=== PATIENT | male | born 1970 | race Asian ===

== ENCOUNTER 2017-01-11 06:26 | Day surgery (SDC) | payer OTHER ==
[2017-01-06 08:52] VITALS: BMI 26.9
[2017-01-11] MEDS ORDERED: oxyCODONE HCL 5 MG TABLET PO PRN (08:04)
[2017-01-11] MEDS ORDERED: ONDANSETRON 4 MG/2 ML VIAL IVPUSH PRN (08:04)
[2017-01-11] MEDS ORDERED: LACTATED RINGERS SOLUTION 1,000 ML IV SCH (08:15)
[2017-01-11] MEDS ORDERED: LEVOFLOXACIN 500 MG PREMIX BAG IVPB ONE (08:42)
[2017-01-11] MEDS ORDERED: DESFLURANE GAS 240 ML BOTTLE IH ONE (09:01)
[2017-01-11 11:30] VITALS: TEMP 97.6
--- NOTE | 2017-01-11 11:30 | OP ---
Operative Note - Note: Operative Date: 01/11/17 Pre-Operative Diagnosis: bilateral urolithiasis Operation: cystoscopy/bilateral retrograde pyelogram/right ureteroscopic laser lithotripsy/right ureterscopic stone basketing/right ureteral stent placement Findings: right ureteral stone with proximal hydroureteronephrosis/left hydro with left renal stones without obstruction Post-Operative Diagnosis: Other (impacted right ureteral stone) Surgeon: Yuriy León Anesthesia: General Specimens Removed: ureteral stone Drains & Tubes with Location: 6 fr/24 cm right ureteral stent
[2017-01-11 12:49] VITALS: BP 101/67; PULSE 59
--- NOTE | 2017-01-12 10:57 | PATH ---
Surgical Pathology Report Patient Name: ALEXANDRIA SR [facility]. Rec. #: [id number] /Age/Gender: 1970 (Age: 46) / M Account: [id number] Location: [facility] SURGICAL Taken: 01/11/2017 Received: 01/11/2017 Reported: 01/12/2017 Physicians: Yuriy León Specimen(s) Received KIDNEY STONE Clinical History Hydronephrosis Final Diagnosis KIDNEY STONE, EXTRACTION: CALCULI SUBMITTED FOR CHEMICAL ANALYSIS (gross only). Electronically Signed Srikanth Teresa M.D. Gross Description Received fresh labeled "kidney stone," is a 0.1 cm in greatest dimension blas, irregular calculus which is sent for chemical analysis. DL/01/11/2017 saudi/01/11/2017
--- NOTE | 2017-01-12 11:16 | OP ---
DATE OF OPERATION: 01/11/2017 PREOPERATIVE DIAGNOSIS: Bilateral urolithiasis with left-sided colic. POSTOPERATIVE DIAGNOSES: 1. Bilateral hydronephrosis. 2. Right impacted ureteral stone with proximal hydronephrosis. 3. Left hydronephrosis with renal stones without evidence of obstruction. PROCEDURE: Cystoscopy, bilateral retrograde pyelogram, right ureteroscopic laser lithotripsy, right ureteroscopic stone basketing, right ureteral stent placement. ATTENDING: Yuriy Griffith MD ANESTHESIA: General. DESCRIPTION OF PROCEDURE: Patient was brought in the operating room, placed in supine position on the operating room table. General anesthesia and preoperative antibiotics were then administered. The patient was then placed in the dorsal lithotomy position, prepped and draped in the usual sterile manner. Cystoscopy was performed. No evidence of neoplasm or stones within the bladder was noted. A left retrograde pyelogram was performed which showed a hydronephrosis without evidence of ureteral obstruction. Adequate drainage of the left kidney was noted. A right retrograde pyelogram was performed, and the proximal right ureteral stone was noted. High-grade proximal hydroureteronephrosis was seen. At this point, a wire was passed through the cystoscope with mild difficulty into the left kidney. Ureteroscopy was then performed. The stone was visualized. Laser lithotripsy utilizing the holmium laser was performed. Stone fragments were basketed and removed and sent for analysis. Once the basketing was completed, the ureteroscope was removed, and a 6-Croatian 24-cm right ureteral stent was placed utilizing the Seldinger technique. No complications were noted. The patient tolerated the procedure very well. The disposition of the patient was to recovery room. Graeme [id number]
== END 2017-01-11 12:50 | disposition home or self-care (01) ==
LOC: JASU-SURG 06:26
PROVIDERS: ATTEND Urology
PROC: 0TF68ZZ Fragmentation in Right Ureter, Via Natural or Artificial Opening Endoscopic (ICD-10-PCS; 2017-01-11)
PROC: 0T768DZ Dilation of Right Ureter with Intraluminal Device, Via Natural or Artificial Opening Endoscopic (ICD-10-PCS; 2017-01-11)
PROC: BT14YZZ Fluoroscopy of Kidneys, Ureters and Bladder using Other Contrast (ICD-10-PCS; 2017-01-11)
PROC: 0TF48ZZ Fragmentation in Left Kidney Pelvis, Via Natural or Artificial Opening Endoscopic (ICD-10-PCS; principal; 2017-01-11 08:00)
DX: N20.2 Calculus of kidney with calculus of ureter (principal); N13.30 Unspecified hydronephrosis
CPT/HCPCS: 36415; 76000-TC; 82360; 88300-TC; 94760

== ENCOUNTER 2017-02-15 06:30 | Day surgery (SDC) | payer OTHER ==
[2017-02-10 13:18] VITALS: BMI 27.6
[2017-02-15] MEDS ORDERED: LEVOFLOXACIN 500 MG PREMIX BAG IVPB ONE ×2 (07:39→08:15)
[2017-02-15] MEDS ORDERED: ONDANSETRON 4 MG/2 ML VIAL IVPUSH PRN (08:53)
[2017-02-15] MEDS ORDERED: ACETAMINOPHEN 325 MG TABLET (FP) PO PRN (08:53)
[2017-02-15] MEDS ORDERED: LACTATED RINGERS SOLUTION 1,000 ML IV SCH (09:00)
[2017-02-15 09:57] VITALS: BP 115/71; PULSE 63
[2017-02-15 11:16] VITALS: TEMP 98
--- NOTE | 2017-02-15 15:22 | OP ---
Operative Note - Note: Operative Date: 02/15/17 Pre-Operative Diagnosis: right renal stone Operation: right eswl Findings: 7 mm right lower pole stone Post-Operative Diagnosis: Same as Pre-op Surgeon: Yuriy León Anesthesia: Fractional Operative Report Dictated: Yes
--- NOTE | 2017-02-15 21:51 | OP ---
DATE OF OPERATION: 02/15/2017 PREOPERATIVE DIAGNOSIS: Right renal stone. POSTOPERATIVE DIAGNOSIS: Right renal stone. PROCEDURE: Right extracorporeal shock wave lithotripsy. ATTENDING: Shine Noel MD ANESTHESIA: Fractional. DESCRIPTION OF OPERATION: The patient was brought in the operating room, placed in supine position on the operating room table. Ultrasonography and fluoroscopy were performed. A 7-mm right lower pole stone was identified. The patient was then given anesthesia and intravenous Levaquin. The patient underwent extracorporeal shock wave lithotripsy; 2500 impulses at 17 joules of power were administered to the stone with excellent fragmentation under real-time fluoroscopy and ultrasonography. The disposition of the patient was to recovery room. No complications were noted. SHINE NOEL M.D. [id number]
== END 2017-02-15 10:30 | disposition home or self-care (01) ==
LOC: JASU-SURG 06:30
PROVIDERS: ATTEND Urology
PROC: 0TF3XZZ Fragmentation in Right Kidney Pelvis, External Approach (ICD-10-PCS; principal; 2017-02-15 08:00)
DX: N20.0 Calculus of kidney (principal)
CPT/HCPCS: 94760

== ENCOUNTER 2017-08-15 10:25 | Observation (INO) | payer OTHER ==
[2017-08-15 10:40] VITALS: BMI 22.6
[2017-08-15] MEDS ORDERED: SODIUM CHLORIDE 1,000 ML IV STA ×2 (10:51→12:10)
[2017-08-15] MEDS ORDERED: FAMOTIDINE IV 20 MG/12 ML VIAL IVPB ONE (10:52)
[2017-08-15] MEDS ORDERED: ONDANSETRON 4 MG/2 ML VIAL IVPUSH ONE (10:53)
--- NOTE | 2017-08-15 11:08 | PDOC ---
History of Present Illness - General Chief Complaint: Lightheaded Stated Complaint: DIZZINESS, WEAKNESS,TREMORS Time Seen by Provider: 08/15/17 10:43 History Source: Patient Exam Limitations: No Limitations - History of Present Illness Initial Comments: 08/15/17 11:02 Patient is a 46M with history of NIDDM, HLD, enlarged prostate and kidney stones here today complaining of generalized weakness and shortness of breath over the past 3 days. Patient states that he has been feeling thirsty all the time, but denies dysuria and increased frequency. Patient also endorses shooting pains in his right foot for which he has started taking diclofenac. He also reports associated burning epigastric pain. Patient also reports chest pain described as a pressure with associated dizziness. Denies fevers, chills, vomiting. No prior cardiac workup beyond EKG. Brother had heart attack in 50s. No leg swelling, no history of blood clots. Past History - Past Medical History Allergies/Adverse Reactions: Allergies Allergy/AdvReac Type Severity Reaction Status Date / Time No Known Drug Allergies Allergy Verified 02/15/17 07:00 Home Medications: Ambulatory Orders Glimepiride [Amaryl] 2 mg PO BID 01/06/17 Simvastatin 10 mg PO HS 01/06/17 Tamsulosin HCl 0.4 mg PO HS 02/05/17 Anemia: No Asthma: No Cancer: No Cardiac Disorders: No CVA: No COPD: No CHF: No Dementia: No Diabetes: Yes GI Disorders: No Disorders: Yes (HX STONES) HTN: No Hypercholesterolemia: Yes Liver Disease: No Seizures: Yes (? PASSED OUT X2) Thyroid Disease: No - Surgical History Abdominal Surgery: No Appendectomy: No Cardiac Surgery: No Cholecystectomy: No Lung Surgery: No Neurologic Surgery: No Orthopedic Surgery: No - Suicide/Smoking/Psychosocial Hx Smoking History: Never smoked Have you smoked in the past 12 months: No Information on smoking cessation initiated: No Hx Alcohol Use: No Drug/Substance Use Hx: No Substance Use Type: None Hx Substance Use Treatment: No Review of Systems - Review of Systems Comments:: 08/15/17 11:05 GENERAL/CONSTITUTIONAL: No fever or chills. Positive for weakness. HEAD, EYES, EARS, NOSE AND THROAT: No change in vision. No sore throat. CARDIOVASCULAR: Positive for chest pain. Positive for shortness of breath RESPIRATORY: No cough, wheezing, or hemoptysis. GASTROINTESTINAL: Positive for nausea. Negative for vomiting, diarrhea or constipation. GENITOURINARY: No dysuria, frequency, or change in urination. MUSCULOSKELETAL: Positive for pain in right leg. No neck or back pain. SKIN: No rash NEUROLOGIC: No headache, vertigo, loss of consciousness, or change in strength/ sensation. ENDOCRINE: Positive for increased thirst. No abnormal weight change HEMATOLOGIC/LYMPHATIC: No anemia, easy bleeding, or history of blood clots. ALLERGIC/IMMUNOLOGIC: No hives or skin allergy. *Physical Exam - Vital Signs Last Vital Signs Temp Pulse Resp BP Pulse Ox 97.9 F 77 20 149/97 97 08/15/17 10:37 08/15/17 10:37 08/15/17 10:37 08/15/17 10:37 08/15/17 10:37 - Physical Exam Comments: 08/15/17 11:05 GENERAL: Awake, alert, and fully oriented, in no acute distress HEAD: No signs of trauma, normocephalic, atraumatic EYES: PERRLA, EOMI, sclera anicteric, conjunctiva clear ENT: Auricles normal inspection, hearing grossly normal, nares patent, oropharynx clear without exudates. Dry mucosa NECK: Normal ROM, supple, no lymphadenopathy, JVD, or masses LUNGS: No distress, speaks full sentences, clear to auscultation bilaterally, no tachypnea HEART: Regular rate and rhythm, normal S1 and S2, no murmurs, rubs or gallops, peripheral pulses normal and equal bilaterally. ABDOMEN: Soft, nontender, normoactive bowel sounds. No guarding, no rebound. No masses EXTREMITIES: Normal inspection, Normal range of motion, no edema. No clubbing or cyanosis. NEUROLOGICAL: Cranial nerves II through XII grossly intact. Normal speech, no focal sensorimotor deficits SKIN: Warm, Dry, normal turgor, no rashes or lesions noted. Heart Score/ECG Review - History History: Moderately suspicious - Electrocardiogram EKG: Normal - Age Age: 45-65 - Risk Factors Risk Factors Heart Score: Yes Hx Hypercholesterolemia, Yes Hx Diabetes, Yes Positive family hx of cardiac disease Based on the list above the patient has:: >/=3 risk factors or Hx atherosclerotic disease - Troponin Troponin: </= normal limit - Score Heart Score - Total: 4 ED Treatment Course - LABORATORY CBC & Chemistry Diagram: 08/15/17 11:30 08/15/17 11:30 - RADIOLOGY Radiology Studies Ordered: Category Date Time Status CHEST X-RAY PORTABLE* [RAD] Stat Radiology 08/15/17 10:52 Taken Medical Decision Making - Medical Decision Making 08/15/17 11:06 Patient is 46M with history of NIDDM, HLD, and prostate enlargement here today complaining of generalized weakness. Vital signs stable and normal. DKA considered, but patient is not tachypneic or kussmal respirating. Fingerstick ordered, will adjust workup if glucose is elevated. Differential is weighted towards dehydration, UTI, hyperglycemia, ACS, anemia. Will evaluate with cbc, cmp, trop, ekg, chest x-ray, ua. Will treat with fluids, pepcid, and zofran. Aspirin ordered, likely admit. Patient is PERC negative. 08/15/17 11:17 EKG shows normal sinus rhythm with rate of 67. No st elevations/depressions. Normal axis. No significant t wave abnormalities. Normal [place]/QRS/QTc intervals. CXR shows no acute cardiopulmonary process. 08/15/17 11:21 Fingerstick 95. 08/15/17 12:08 Laboratory Tests 08/15/17 08/15/17 08/15/17 11:30 11:30 11:30 WBC 7.6 Hgb 17.0 H Plt Count 170 INR 1.00 Random Glucose 130 H Troponin I < 0.02 CBC shows hemoconcentration. Glucose 130. Troponin undetectable. Will admit for further cardiac workup. *DC/Admit/Observation/Transfer Diagnosis at time of Disposition: Chest pain - Discharge Dispostion Condition at time of disposition: Stable Decision to Admit order: Yes - Referrals Referrals: Kalia Martinez MD [Primary Care Provider] - - Patient Instructions - Post Discharge Activity
[2017-08-15] MEDS ORDERED: ASPIRIN 81 MG CHEWABLE TABLETS PO ONE (11:13)
[2017-08-15 11:35] LABS: BASO % 0.7 % (0-2.0); EOS % 2.3 % (0-4.5); HEMATOCRIT 50.1 % (35.4-49); LYMPH % 30.1 % (8-40); MCH 31.5 pg (25.7-33.7); MCHC 33.9 g/dl (32.0-35.9); MEAN CELL VOLUME 92.9 fl (80-96); MEAN PLT VOLUME 8.7 fl (7.5-11.1); MONO % 7.2 % (3.8-10.2); NEUT % 59.7 % (42.8-82.8); PLATELET COUNT 170 K/MM3 (134-434); RDW 13.4 % (11.9-15.9); WHITE BLOOD COUNT 7.6 K/mm3 (4.0-10.0)
--- NOTE | 2017-08-15 11:35 | PDOC ---
Attending Attestation - Resident Resident Name: DaquanfaridehMulugeta - ED Attending Attestation I have performed the following: I have examined & evaluated the patient, The case was reviewed & discussed with the resident, I agree w/resident's findings & plan, Exceptions are as noted - HPI HPI: 08/15/17 11:50 46yo male h/;o DM HTN family h/o cad here c/o headache, eye pain, polyuria polydipsia, then 2 days of lightheaded ness, now chest pressure or tightness and sob. no f/c no cough. no urinary complaints. no h/o pe or dvt. no leg swelling. started diflonec recently by pcp dr. townsend for ankle pain. family h/ o brother with MN in 50's. no previous workup. pcp is dr. Townsend. pt living in [facility] until 11 mo ago. - Physicial Exam PE: 08/15/17 11:31 awake alert lungs clear bilaterally. heart rrr no mrg. abd soft nt nd. ext wwp no calf tendereness. no edema. 2 + symm pulses. nuero alert oriented x 3. strength intact throughout. skin warm and dry no rash. - Medical Decision Making 08/15/17 11:32 46yo male h/;o DM HTN family h/o cad here c/o headache, eye pain, polyuria polydipsia, then 2 days of lightheaded ness, now chest pressure or tightness and sob. no f/c no cough. no urinary complaints. no h/o pe or dvt. no leg swelling. started diflonec recently by pcp dr. townsend for ankle pain. differential Hyperglycemia, dka, dehydration. anemia, renal failure, acs. infection such as uti or pna. chf. plan labs ekg aspirin. cbc cmp trop. cxr. iv hydration. will likely require admission pending results r/o acs. no prior cardiac workup, high risk. ekg unremarkable. Heart Score/ECG Review - History History: Moderately suspicious - Age Age: 45-65 - Risk Factors Risk Factors Heart Score: Yes Hx Hypercholesterolemia, Yes Hx Hypertension, Yes Hx Diabetes, Yes Positive family hx of cardiac disease Based on the list above the patient has:: >/=3 risk factors or Hx atherosclerotic disease - Troponin Troponin: </= normal limit #1 General ECG Interpretation: Sinus Rhythm, Normal Rate, Normal Intervals, No acute ischemic changes
[2017-08-15] MEDS ORDERED: FAMOTIDINE 20 MG/50 ML IVPB 20 MG/50 ML MG IVPB ONE (11:41)
[2017-08-15] MEDS ORDERED: ONDANSETRON 4 MG/2 ML VIAL ONE (11:43)
[2017-08-15] MEDS ORDERED: ASPIRIN 81 MG CHEWABLE TABLETS ONE (11:43)
[2017-08-15 11:47] LABS: PROTHROMBIN TIME (PATIENT) 11.3 SEC (9.7-13.0)
[2017-08-15 11:59] LABS: ALBUMIN 3.7 g/dl (3.4-5.0); ANION GAP 6 (8-16); BILIRUBIN,TOTAL 0.6 mg/dL (0.2-1.0); BLOOD UREA NITROGEN 11 mg/dL (7-18); CALCIUM 8.7 mg/dL (8.5-10.1); CHLORIDE 108 mmol/L (98-107); CO2 27 mmol/L (21-32); CREATININE 1.1 mg/dL (0.7-1.3); GLUCOSE,RANDOM 130 mg/dL (74-106); MAGNESIUM 2.2 mg/dL (1.8-2.4); SGOT/AST 22 U/L (15-37); SGPT/ALT 46 U/L (12-78); SODIUM 141 mmol/L (136-145); TOT PROT 7.1 g/dl (6.4-8.2)
[2017-08-15 12:02] LABS: ALK PHOS 83 U/L (45-117)
[2017-08-15 12:39] LABS: URINE APPEARANCE CLEAR; URINE BILIRUBIN NEGATIVE (<2.0 mg/dL); URINE COLOR COLORLESS; URINE GLUCOSE (UA) NEGATIVE (NEGATIVE); URINE KETONE NEGATIVE (NEGATIVE); URINE LEUK ESTERASE NEGATIVE (NEGATIVE); URINE NITRITE NEGATIVE (NEGATIVE); URINE PROTEIN NEGATIVE (NEGATIVE); URINE UROBILINOGEN NEGATIVE mg/dL (0.2-1.0)
[2017-08-15] MEDS ORDERED: ACETAMINOPHEN 325 MG TABLET (FP) PO PRN (17:52)
[2017-08-15] MEDS ORDERED: ATORVASTATIN CA 10 MG TABLET (FP) PO SCH (22:00)
[2017-08-15] MEDS: INSULIN SLIDING SCALE (NOVOLOG) 1 VIAL SQ SCH (22:10)
[2017-08-16] MEDS ORDERED: DEXTROSE 5%-0.45% SALINE 1,000 ML IV SCH
[2017-08-16 01:37] VITALS: TEMP 97.4
[2017-08-16] MEDS: INSULIN SLIDING SCALE (NOVOLOG) 1 VIAL SQ SCH ×3 (06:23→17:38)
[2017-08-16] MEDS ORDERED: glipiZIDE 5 MG TABLET (FP) PO SCH (07:00)
--- NOTE | 2017-08-16 07:58 | HP ---
DATE OF ADMISSION: DATE OF DICTATION: 08/16/2017 HISTORY OF PRESENT ILLNESS: The patient is a 46-year-old male with a history of diabetes, hypercholesterolemia, enlarged prostate and history of kidney stones who came to the emergency room with complaint of generalized weakness and shortness of breath over the past 3 days. As per the patient, complains of shooting pains in the right foot for which he was started on diclofenac and that associated with the burning sensation in the epigastric area. The patient reports that this pain described as pressure associated with dizziness. Denies any fever, chills, vomiting. No palpitations. No radiation of the pain. No prior cardiac workup. The patient's brother had a heart attack at the age of 50s. No leg swelling. MEDICATIONS: Glimepiride (Amaryl) 2 mg p.o. b.i.d., simvastatin 10 mg at bedtime and Flomax 0.4 mg p.o. at bedtime. ALLERGIES: No known drug allergies. PAST MEDICAL HISTORY: Significant for diabetes, hypercholesterolemia, kidney stone, questionable seizure disorder, had workup in the past. PAST SURGICAL HISTORY: Lithotripsy. PERSONAL/SOCIAL HISTORY: Nothing significant. REVIEW OF SYSTEMS: Constitutional: No fever, no chills. Head and Neck: Nothing significant. Cardiovascular: The patient complains of chest pain and shortness of breath. Respiratory: Nothing significant. Gastrointestinal: Epigastric burning sensation. Genitalia: History of kidney stone. Musculoskeletal: Slight pain in the right leg. Nothing significant. Neurologic: Nothing significant. Endocrine: Diabetes. PHYSICAL EXAMINATION: Vital Signs: In the emergency room, temperature 97.9, pulse 77 per minute, respirations 20, blood pressure 149/97, pulse 97 per minute, saturation 97%. General: The patient is alert, awake, oriented x3, no apparent distress. HEENT: Head is normal. Pupils are equal, round, and reactive to light and accommodation. ENT normal. Neck: Normal. Lungs: Clear. Equal bilateral air entry. Cardiovascular: First and second sounds normal. Abdomen: Soft and nontender. No significant distention. Bowel sounds present. Extremities: Normal. Neurologic: Cranial nerves II-XII intact. Normal speech and no focal motor or sensory deficits. Skin: Normal. EKG: Normal sinus rhythm with rate of [address] minute and no [address] or T-wave changes. Chest x-ray normal. LABORATORY DATA: CBC: WBC 7.6, hemoglobin 17, hematocrit 50.7, platelet 170, sodium 141, potassium 4, chloride 108, bicarbonate 27, BUN 11, creatinine 1.1, sugar 130, troponin x2 negative. UA negative. Calcium normal. The patient is admitted for observation to telemetry for chest pain, rule out coronary artery disease, diabetes, hypercholesterolemia. PLAN: Cardiac enzymes x3. Cardiology consult. Continue home medications. Assess chest pain, monitor blood sugar. The patient is stable on the floor. Graeme [id number] MTDD
[2017-08-16 08:09] LABS: HEMATOCRIT 51.1 % (35.4-49); HEMOGLOBIN 17.2 GM/dL (11.7-16.9); MCH 31.8 pg (25.7-33.7); MCHC 33.6 g/dl (32.0-35.9); MEAN CELL VOLUME 94.4 fl (80-96); MEAN PLT VOLUME 9.4 fl (7.5-11.1); PLATELET COUNT 185 K/MM3 (134-434); RBC 5.41 M/mm3 (4.00-5.60); RDW 13.4 % (11.9-15.9); WHITE BLOOD COUNT 6.2 K/mm3 (4.0-10.0)
[2017-08-16] MEDS ORDERED: TAMSULOSIN HCL 0.4 MG CAP.ER.24H (FP) PO SCH (08:30)
[2017-08-16 08:45] LABS: CHLORIDE 107 mmol/L (98-107); POTASSIUM 4.3 mmol/L (3.5-5.1); SODIUM 142 mmol/L (136-145)
[2017-08-16 09:03] LABS: ALBUMIN 3.9 g/dl (3.4-5.0); ALK PHOS 82 U/L (45-117); ANION GAP 7 (8-16); BILIRUBIN,TOTAL 0.7 mg/dL (0.2-1.0); BLOOD UREA NITROGEN 11 mg/dL (7-18); CALCIUM 8.9 mg/dL (8.5-10.1); CHOLESTEROL 172 mg/dL (50-200); CO2 28 mmol/L (21-32); GLUCOSE,RANDOM 129 mg/dL (74-106); HDL CHOLESTEROL 39 mg/dL (40-60); SGOT/AST 23 U/L (15-37); SGPT/ALT 45 U/L (12-78); TOT PROT 7.5 g/dl (6.4-8.2); TRIGLYCERIDES 221 mg/dL (35-160)
[2017-08-16] MEDS ORDERED: ASPIRIN 81 MG CHEWABLE TABLETS PO SCH (10:00)
--- NOTE | 2017-08-16 10:06 | CON.CARD ---
Cardiology Consult (text) - Consultation Consultation Note: CC: cp 46M with history of NIDDM, HLD, prior seizure vs syncope, enlarged prostate and kidney stones here today complaining of cp. Patient states he started taking diclofenac one week ago for ankle pain. After taking the medication, he began experiencing nausea after doses. A few days later he began having sob and nausea with doses. Yesterday he additionally began feeling chest discomfort after taking the medication. No chest discomfort or sob since arriving at the hospital. + weakness and h/a during stress testing. no palps, orthopnea, pnd, le edema, claudication, bleeding, transient neurologic sx's. no f/c/s, vomiting, diarrhea, cough, congestion, rashes, visual disturbances. pmhx/pshx: per hpi. social hx: no tob fam hx: Brother had heart attack in 50s. ros: per hpi Ambulatory Orders Glimepiride [Amaryl] 2 mg PO DAILY 01/06/17 Simvastatin 10 mg PO HS 01/06/17 Tamsulosin HCl 0.4 mg PO DAILY 02/05/17 Glipizide [Glipizide ER] 5 mg PO DAILY 08/15/17 Current Medications Acetaminophen (Tylenol -) 650 mg PO Q6H PRN PRN Reason: PAIN 1-5 Aspirin (Asa -) 81 mg PO DAILY [facility] Last Admin: 08/16/17 09:34 Dose: 81 mg Atorvastatin Calcium (Lipitor -) 10 mg PO HS [facility] Last Admin: 08/15/17 22:10 Dose: 10 mg Glipizide (Glucotrol -) 5 mg PO DAILY@0700 [facility] Last Admin: 08/16/17 06:23 Dose: Not Given Dextrose/Sodium Chloride (D5-1/2ns -) 1,000 mls @ 60 mls/hr IV ASDIR [facility] Last Admin: 08/16/17 00:10 Dose: 60 mls/hr Insulin Aspart (Novolog Vial Sliding Scale -) 1 vial SQ ACHS [facility] PRN Reason: Protocol Last Admin: 08/16/17 06:23 Dose: Not Given Tamsulosin HCl (Flomax -) 0.4 mg PO DAILY@0830 [facility] Last Admin: 08/16/17 09:34 Dose: 0.4 mg Vital Signs - 24 hr 08/15/17 08/15/17 08/15/17 10:37 13:19 13:29 Temperature 97.9 F Pulse Rate 77 Pulse Rate [ 68 Apical] Respiratory 20 18 Rate Blood Pressure 149/97 Blood Pressure 120/83 [Left Arm] O2 Sat by Pulse 97 97 Oximetry (%) 08/15/17 08/15/17 08/15/17 16:58 18:23 21:18 Temperature 98.0 F 97.7 F Pulse Rate 53 L Pulse Rate [ Apical] Respiratory 18 16 Rate Blood Pressure 126/77 125/74 Blood Pressure [Left Arm] O2 Sat by Pulse 99 99 Oximetry (%) 08/16/17 08/16/17 08/16/17 01:36 05:00 05:18 Temperature 97.4 F L 97.4 F L Pulse Rate 54 L 53 L Pulse Rate [ Apical] Respiratory 16 16 16 Rate Blood Pressure 117/69 136/86 Blood Pressure [Left Arm] O2 Sat by Pulse 99 Oximetry (%) Intake & Output 08/14/17 08/15/17 08/16/17 08/17/17 07:59 07:59 07:59 07:59 Intake Total 1070 Balance 1070 Weight 140 lb nad, calm jvd flat, neck supple ctab, nl effort rrr nl s1, s2 no mrg + bs soft nt nd ext without e/c/c + dp/pt aaox3 no jaundice, diaphoresis. CBC, BMP 08/16/17 06:58 08/16/17 06:58 Laboratory Tests 07/30/17 08/15/17 08/15/17 09:06 11:30 18:10 Hemoglobin A1c % 6.8 H D Total Bilirubin AST ALT Alkaline Phosphatase Troponin I < 0.02 < 0.02 Albumin Triglycerides Cholesterol Total LDL Cholesterol HDL Cholesterol 08/16/17 06:58 Hemoglobin A1c % Total Bilirubin 0.7 AST 23 ALT 45 Alkaline Phosphatase 82 Troponin I < 0.02 Albumin 3.9 Triglycerides 221 H D Cholesterol 172 D Total LDL Cholesterol 117 H D HDL Cholesterol 39 L ekg 07/2017: wnl. tele: sr/sb cxr: wnl stress nuc 07/2017: 88% phr. 11 METS. no ischemic ekg changes. nl EF. perf defect compatible with diaphragmatic attenuation. no ischemia/infarct. echo 07/2017: tds. nl lv siz/fn. nl rv size/fn. 1+ mac. 46M with history of NIDDM, HLD, prior seizure vs syncope, enlarged prostate and kidney stones here today complaining of cp. cp/hl - echo, stress test and tele wnl. con't statin. can consider asa at discretion of outpatient MD. - evaluation of non-cardiac etiology of pain per pmd. stable for d/c from CV perspective.
--- NOTE | 2017-08-16 10:08 | PN ---
Progress Note, Physician Chief Complaint: Pt lying priscila bed no complaints today No chest pain,no sob Cardiology consult pending Troponin negative - Current Medication List Current Medications: Active Medications Acetaminophen (Tylenol -) 650 mg PO Q6H PRN PRN Reason: PAIN 1-5 Aspirin (Asa -) 81 mg PO DAILY [facility] Last Admin: 08/16/17 09:34 Dose: 81 mg Atorvastatin Calcium (Lipitor -) 10 mg PO HS [facility] Last Admin: 08/15/17 22:10 Dose: 10 mg Glipizide (Glucotrol -) 5 mg PO DAILY@0700 [facility] Last Admin: 08/16/17 06:23 Dose: Not Given Dextrose/Sodium Chloride (D5-1/2ns -) 1,000 mls @ 60 mls/hr IV ASDIR [facility] Last Admin: 08/16/17 00:10 Dose: 60 mls/hr Insulin Aspart (Novolog Vial Sliding Scale -) 1 vial SQ ACHS [facility] PRN Reason: Protocol Last Admin: 08/16/17 06:23 Dose: Not Given Tamsulosin HCl (Flomax -) 0.4 mg PO DAILY@0830 [facility] Last Admin: 08/16/17 09:34 Dose: 0.4 mg - Objective Vital Signs: Vital Signs Temperature 97.4 F L 08/16/17 05:00 Pulse Rate 53 L 08/16/17 05:00 Respiratory Rate 16 08/16/17 05:18 Blood Pressure 136/86 08/16/17 05:00 O2 Sat by Pulse Oximetry (%) 99 08/16/17 05:18 Constitutional: Yes: No Distress Eyes: Yes: Conjunctiva Clear HENT: Yes: Atraumatic Neck: Yes: Supple Cardiovascular: Yes: Regular Rate and Rhythm Respiratory: Yes: Regular, CTA Bilaterally Gastrointestinal: Yes: Normal Bowel Sounds, Soft Musculoskeletal: Yes: WNL Extremities: Yes: WNL Edema: No Peripheral Pulses WNL: Yes Neurological: Yes: WNL, Alert, Oriented ...Motor Strength: WNL Psychiatric: Yes: WNL, Alert, Oriented Labs: CBC, BMP 08/16/17 06:58 08/16/17 06:58 INR, PTT INR 1.00 (0.82-1.09) 08/15/17 11:30 - ....Imaging Chest X-ray: Report Reviewed EKG: Report Reviewed Assessment/Plan Chest pain DM Hypercholestrolemia PLAN cardiology consult Continue home meds Monitor sugar will f/u pt
[2017-08-16 10:36] VITALS: BP 150/79; PULSE 64
--- NOTE | 2017-08-17 00:04 | EKG ---
Test Reason : Blood Pressure : / mmHG Vent. Rate : 067 BPM Atrial Rate : 067 BPM P-R Int : 130 ms QRS Dur : 092 ms QT Int : 368 ms P-R-T Axes : 067 049 038 degrees QTc Int : 388 ms NORMAL SINUS RHYTHM NORMAL ECG NO PREVIOUS ECGS AVAILABLE Confirmed by MARCUS ROGERS MD ([id number]) on 08/17/2017 12:04:19 AM Referred By: Confirmed By:MARCUS ROGERS MD
--- NOTE | 2017-08-17 15:19 | DS ---
DATE OF ADMISSION: DATE OF DISCHARGE: DATE OF DICTATION: 08/17/2017 The patient is a 46-year-old male with a history of diabetes mellitus, hypercholesterolemia, prior history of seizure versus syncope, enlarged prostate, kidney stone, admitted with chest pain. As per the patient, he took some diclofenac for ankle pain. After taking the medication, he developed nausea and after some time developed shortness of breath. So since he had chest discomfort, the patient came to the emergency room for evaluation. He was admitted with chest discomfort. Medication reviewed. The patient is on glimepiride, simvastatin, Flomax. In the ER, at the time of admission his vitals were stable. Temperature 97.9, pulse rate 77, blood pressure 149/97, saturation 97%. PHYSICAL EXAMINATION: General: Alert and oriented x3. Neck: No JVD. Chest: Clear. Cardiovascular: First and second sounds normal. Abdomen: Soft, no tenderness, no distention. Bowel sounds present. Extremities: No edema. LABORATORY DATA: CBC: WBC 7.6, hemoglobin 17, hematocrit 50, platelets 170. CMP was normal. Troponin x3 negative. Liver function normal. Total cholesterol 172, triglycerides 221, HDL 39, LDL 117. Urine negative. PT/INR normal. Chest x-ray shows no acute pathology. EKG: Normal sinus rhythm. Normal EKG. The patient was kept for observation in telemetry. Cardiology consultation called. The patient had a stress test done, and it is overall negative stress test, exercise part and nuclear part. The patient was stable in the floor. Echocardiogram was done. It showed left ventricle of normal size. Left ventricular systolic function normal. No regional wall motion abnormalities. Ejection fraction 70. Right ventricular systolic function normal. Left atrial size normal. Mild mitral annular calcification. Insufficient TR. The patient discharged home in stable condition, on home medications. Recommended to continue aspirin and follow with his primary and Cardiology. SUMMER LAGUNA M.D. [id number]
== END 2017-08-16 20:40 | disposition home or self-care (01) ==
LOC: JER 10:25 → JERBED 12:25 → J4S 16:04
PROVIDERS: ADMIT Family Medicine; ATTEND Family Medicine
PROC: 3E033GC Introduction of Other Therapeutic Substance into Peripheral Vein, Percutaneous Approach (ICD-10-PCS; principal; 2017-08-15)
PROC: 3E0337Z Introduction of Electrolytic and Water Balance Substance into Peripheral Vein, Percutaneous Approach (ICD-10-PCS; 2017-08-15)
DX: R07.9 Chest pain, unspecified (principal); E11.9 Type 2 diabetes mellitus without complications; E78.5 Hyperlipidemia, unspecified; N40.0 Benign prostatic hyperplasia without lower urinary tract symptoms; Z87.442 Personal history of urinary calculi; Z79.84 Long term (current) use of oral hypoglycemic drugs
CPT/HCPCS: 36415; 71045-TC-FY; 78452-TC; 80053; 80061; 81003; 82550; 82962; 83721; 83735; 84484; 85025; 85027; 85610; 93005; 93010; 93017; 93306-TC; 96361; 96372; 96374; 96375; 99285-25; A9502; G0378; J7030

== ENCOUNTER 2017-09-27 12:36 | Day surgery (SDC) | payer OTHER ==
[2017-09-24 17:48] VITALS: BMI 24.0
[2017-09-27] MEDS ORDERED: MIDAZOLAM HCL 2 MG/2 ML SINGLE DOSE VIAL ONE (14:36)
[2017-09-27] MEDS ORDERED: ACETAMINOPHEN 325 MG TABLET (FP) PO PRN (15:47)
[2017-09-27] MEDS ORDERED: ONDANSETRON 4 MG/2 ML VIAL IVPUSH PRN (15:47)
[2017-09-27] MEDS: LACTATED RINGERS SOLUTION 1,000 ML IV SCH ×2 (16:00→23:00)
--- NOTE | 2017-09-27 16:23 | OP ---
Operative Note - Note: Operative Date: 09/27/17 Pre-Operative Diagnosis: Right kidney stone Operation: Right ESWL Findings: 10 mm mid pole renal stone & 12 mm proximal ureteral stone Ureteral stone treated. Post-Operative Diagnosis: Same as Pre-op Surgeon: Yuriy León (not complicated) Anesthesia: Fractional
--- NOTE | 2017-09-27 17:36 | RAPID ---
Physical Examination Vital Signs: Vital Signs Temperature 97.8 F 09/27/17 16:45 Pulse Rate 66 09/27/17 16:45 Respiratory Rate 18 09/27/17 16:45 Blood Pressure 114/78 09/27/17 16:45 O2 Sat by Pulse Oximetry (%) 100 09/27/17 16:30 Rapid Response - Rapid Response Assessment: Rapid response called at 5:00pm. Reported that patient was s/p ESWL for renal stone and reported seizure like activity with acute somnolence. On arrival patient appeared fatigued, was being actively bag ventilated by anesthesia. Patient was able to respond that he is not in distress Reviewing prior records, patient has a history of "seizure vs syncopal" activity , but this was not previously elaborated on. Vitals: BP 149/94 O2 sat 100% HR 50 RR 16 PE General: patient is awake, but fatigued appearing, difficult to answer questions HEENT: PERRL, EOMI, there are bits of leftover food in the oropharynx Neuro: reflexes 2+ bilaterally, motor strength 5/5 bilaterally upper and lower extremities, CN II-XII intact Heart: RRR no murmurs Lungs: CTA Extremities: no edema Fingerstick glucose 111 Assessment/Plan 47 year old male with a hx of diabetes, HLD, hx of seizure/syncope -Likely seizure vs syncope -patient is now awake and alert -not hypoglycemic -will direct admit for further syncopal evaluation
--- NOTE | 2017-09-27 17:41 | HP ---
Admitting History and Physical - Admission Chief Complaint: post anesthesia seizure, ams History of Present Illness: This is a 47 year old male with pmhx of DM II, HLD, BPH, nephrolithiasis, prior seizure vs syncope after previous lithotripsy 8 months ago was in PACU s/p ESWL for kidney stone when rapid response was called for AMS/seizure. Per DIRECTOR REGULATORY COMPLIANCE, sister in room yelled out for AMS and was non responsive for ~2 mins. DIRECTOR REGULATORY COMPLIANCE noted rigidity, however no rigors and woke up when rapid team came. Additionally , stated before she left the room he c/o lightheadedness. Per Rapid response note pt was fatigued appearing on arrival, being ventilated by anesthesia. BGM 111. Anesthesia noted tonic clonic behavior upon arrival Pt sister states after initial seizure activity after surgery 8 months ago, followed up with Dr. Easton and brain MRI was negative Currently, pt states he feels very tired, denies hardy, dizziness, change in vision. History Source: Patient Limitations to Obtaining History: No Limitations - Smoking History Smoking history: Never smoked Have you smoked in the past 12 months: No - Alcohol/Substance Use Hx Alcohol Use: No Home Medications - Allergies Allergies/Adverse Reactions: Allergies Allergy/AdvReac Type Severity Reaction Status Date / Time diclofenac AdvReac Verified 08/15/17 13:29 - Home Medications Home Medications: Ambulatory Orders Simvastatin 20 mg PO HS 01/06/17 Tamsulosin HCl 0.4 mg PO DAILY 02/05/17 Glipizide [Glipizide ER] 5 mg PO BID 08/15/17 Cholecalciferol (Vitamin D3) [Optimal D3] 50,000 unit PO WEEKLY 09/24/17 Review of Systems - Review of Systems Constitutional: reports: Lethargy Eyes: reports: No Symptoms HENT: reports: No Symptoms Neck: reports: No Symptoms Cardiovascular: reports: No Symptoms Respiratory: reports: No Symptoms Gastrointestinal: reports: No Symptoms Genitourinary: reports: No Symptoms Musculoskeletal: reports: No Symptoms Integumentary: reports: No Symptoms Neurological: reports: Change in LOC, Seizure, Syncope Endocrine: reports: No Symptoms Hematology/Lymphatic: reports: No Symptoms Psychiatric: reports: No Symptoms Physical Examination Vital Signs: Vital Signs Temperature 97.8 F 09/27/17 16:45 Pulse Rate 66 09/27/17 16:45 Respiratory Rate 18 09/27/17 16:45 Blood Pressure 114/78 09/27/17 16:45 O2 Sat by Pulse Oximetry (%) 100 09/27/17 16:30 Constitutional: Yes: Well Nourished Eyes: Yes: Conjunctiva Clear HENT: Yes: Atraumatic Neck: Yes: Supple Cardiovascular: Yes: Regular Rate and Rhythm, S1, S2 Respiratory: Yes: Regular, CTA Bilaterally Gastrointestinal: Yes: Normal Bowel Sounds, Soft Renal/: Yes: WNL Musculoskeletal: Yes: WNL Extremities: Yes: WNL Edema: No Peripheral Pulses WNL: Yes Integumentary: Yes: WNL Neurological: Yes: Alert, Oriented, Cran Nerves II-XII Intact, Lethargy Psychiatric: Yes: Alert, Oriented Imaging - Results EKG: Image Reviewed (EKG strip from PACU NSR) Problem List - Problems (1) Seizure Code(s): R56.9 - UNSPECIFIED CONVULSIONS (2) Syncope Code(s): R55 - SYNCOPE AND COLLAPSE Assessment/Plan Assessment: 47 year old male with a hx of diabetes, HLD, nephrolithasis, BPH, hx of seizure/syncope following previous surgery placed under observation for post anesthesia AMS Plan: 1. Seizure - Likely anesthesia induced, increased sensitivity - No need for repeat MRI brain, will place call to Dr. Easton for outpt follow up - Continue gentle fluids - Neuro checks - ECHO, stress done 08/26 as outpt, wnl at that time - Monitor over tele tonight 2. DM II - ISS, BGM ACHS 3. HLD - Statin 4. DVT - SCDs 5. s/p L lithotripsy - Flomax Visit type - Emergency Visit Emergency Visit: No - New Patient This patient is new to me today: Yes Date on this admission: 09/28/17 - Critical Care Critical Care patient: No Hospitalist Screening - Colonoscopy Questionnaire Colonoscopy Questionnaire: Colonoscopy Questionnaire - Patient: 50 - 75 years old and never had a screening colonoscopy: Unknown History of colon or rectal polyps, or CA: Unknown History of IBD, Crohn's disease or UC: Unknown History of abdominal radiation therapy as a child: Unknown - Relative: 1 with colon or rectal CA, or polyps at age 60 or younger: Unknown Colon or rectal CA diagnosed at age 45 or younger: Unknown Multiple relatives with colon or rectal CA: Unknown - Outcome: Screening Result: Negative Screen
[2017-09-27] MEDS: INSULIN SLIDING SCALE (NOVOLOG) 1 VIAL SQ SCH (21:17)
--- NOTE | 2017-09-27 21:58 | OP ---
DATE OF OPERATION: 09/27/2017 PREOPERATIVE DIAGNOSIS: Left renal stone. POSTOPERATIVE DIAGNOSIS: Left renal stone and left ureteral stone. PROCEDURE: Left extracorporeal shock wave lithotripsy of left ureteral stone. ATTENDING: Yuriy Griffith MD ANESTHESIA: Fractional. DESCRIPTION OF OPERATION: Patient was brought in the operating room, placed in a supine position on the operating room table. Ultrasonography and fluoroscopy were performed. A 10-mm left mid-pole stone was identified. A 12-mm left upper ureteral stone was also identified. The stone was partially obstructing as seen by the fact that there was no significant hydronephrosis. The patient does not have a stent. It was decided to perform a left extracorporeal shock wave lithotripsy on the left ureteral stone as the stone had the potential to cause significant morbidity. The patient was given anesthesia and preoperative antibiotics. The patient underwent 3000 impulses at 20 joules of power of the upper left ureteral stone with excellent fragmentation of the stone noted. The disposition of the patient was to recovery room. No complications were noted. The case will be discussed with the patient and his family in order to avoid significant colic in the case of obstruction. The patient will follow up in the morning to be evaluated in the office. Graeme [id number]
[2017-09-28 06:33] LABS: BASO % 0.3 % (0-2.0); HEMATOCRIT 46.9 % (35.4-49); HEMOGLOBIN 15.9 GM/dL (11.7-16.9); LYMPH % 27.1 % (8-40); MEAN CELL VOLUME 94.1 fl (80-96); MEAN PLT VOLUME 9.3 fl (7.5-11.1); MONO % 7.2 % (3.8-10.2); NEUT % 63.4 % (42.8-82.8); PLATELET COUNT 158 K/MM3 (134-434); RBC 4.99 M/mm3 (4.00-5.60); RDW 13.3 % (11.9-15.9); WHITE BLOOD COUNT 9.2 K/mm3 (4.0-10.0)
[2017-09-28] MEDS: INSULIN SLIDING SCALE (NOVOLOG) 1 VIAL SQ SCH ×2 (06:38→12:11)
[2017-09-28 06:55] LABS: ANION GAP 7 (8-16); BLOOD UREA NITROGEN 13 mg/dL (7-18); CALCIUM 8.5 mg/dL (8.5-10.1); CHLORIDE 107 mmol/L (98-107); CO2 26 mmol/L (21-32); CREATININE 0.9 mg/dL (0.7-1.3); GLUCOSE,RANDOM 124 mg/dL (74-106); MAGNESIUM 2.2 mg/dL (1.8-2.4); PHOSPHOROUS 3.3 mg/dL (2.5-4.9); POTASSIUM 3.9 mmol/L (3.5-5.1); SODIUM 140 mmol/L (136-145)
[2017-09-28] MEDS ORDERED: TAMSULOSIN HCL 0.4 MG CAP.ER.24H (FP) PO SCH (08:30)
--- NOTE | 2017-09-28 14:09 | DS ---
Physical Exam: SUBJECTIVE: Patient seen and examined. He has no complaints, no fatigue, pain, no further seizure episodes. OBJECTIVE: Vital Signs Period Temp Pulse Resp BP Sys/Rowe Pulse Ox Last 24 Hr 97.3 F-98.6 F 51-71 11-18 100-149/64-94 96-100 PHYSICAL EXAM GENERAL: The patient is awake, alert, and fully oriented, in no acute distress. HEAD: Normal with no signs of trauma. EYES: PERRL, extraocular movements intact, sclera anicteric, conjunctiva clear. ENT: Ears normal, nares patent, oropharynx clear without exudates, moist mucous membranes. NECK: Trachea midline, full range of motion, supple. LUNGS: Breath sounds equal, clear to auscultation bilaterally, no wheezes, no crackles, no accessory muscle use. HEART: Regular rate and rhythm, S1, S2 without murmur, rub or gallop. ABDOMEN: Soft, nontender, nondistended, normoactive bowel sounds, no guarding, no rebound, no hepatosplenomegaly, no masses. EXTREMITIES: 2+ pulses, warm, well-perfused, no edema. NEUROLOGICAL: Cranial nerves II through XII grossly intact. Normal speech, gait not observed. PSYCH: Normal mood, normal affect. SKIN: Warm, dry, normal turgor, no rashes or lesions noted. Laboratory Results - last 24 hr 09/28/17 09/28/17 09/28/17 06:00 06:00 11:39 WBC 9.2 RBC 4.99 Hgb 15.9 Hct 46.9 MCV 94.1 MCH 32.0 MCHC 34.0 RDW 13.3 Plt Count 158 MPV 9.3 Absolute Neuts (auto) 5.8 Neutrophils % 63.4 Lymphocytes % 27.1 Monocytes % 7.2 Eosinophils % 2.0 Basophils % 0.3 Nucleated RBC % 0 Sodium 140 Potassium 3.9 Chloride 107 Carbon Dioxide 26 Anion Gap 7 L BUN 13 Creatinine 0.9 Creat Clearance w eGFR > 60 POC Glucometer 114 Random Glucose 124 H Calcium 8.5 Phosphorus 3.3 Magnesium 2.2 HOSPITAL COURSE: Date of Admission:09/27/17 Date of Discharge: 09/28/17 Minutes to complete discharge: 37 Discharge Summary Reason For Visit: CALCULUS OF KIDNEY Current Active Problems Seizure (Acute) Syncope (Acute) Hospital Course: Hospital Course: 47 year old male with pmhx of DM II, HLD, BPH, nephrolithiasis, prior seizure vs syncope after previous lithotripsy 8 months ago was in PACU s/p ESWL for kidney stone when rapid response was called for AMS/seizure. Per CAD[employer]X PIPING DESIGNER, sister in room yelled out for AMS and was non responsive for ~2 mins. CAD[employer] PIPING DESIGNER noted rigidity, however no rigors and woke up when rapid team came. Additionally , stated before she left the room he c/o lightheadedness. Per Rapid response note pt was fatigued appearing on arrival, being ventilated by anesthesia. BGM 111. Anesthesia noted tonic clonic behavior upon arrival Pt sister states after initial seizure activity after surgery 8 months ago, followed up with Dr. Easton and brain MRI was negative Patient was observed overnight, no further seizure activity, telemetry wnl. Discussed with Dr. Easton will follow with pt in office Pt aware and agrees Post of urology follow up in office Condition: Stable - Instructions Diet, Activity, Other Instructions: Please return to the ED for any new, persistent, or worsening symptoms. Follow up with your PCP in 1 week Follow up with Dr. Easton in 1-2 weeks, he is expecting you Follow up with Urology in 1 weeks as per post op evaluation Referrals: Gume Easton MD [Staff Physician] - 2 Weeks Yuriy León MD [Staff Physician] - Kalia Martinez MD [Primary Care Provider] - Disposition: HOME - Home Medications Comprehensive Discharge Medication List: Ambulatory Orders Simvastatin 20 mg PO HS 01/06/17 Tamsulosin HCl 0.4 mg PO DAILY 02/05/17 Glipizide [Glipizide ER] 5 mg PO BID 08/15/17 Cholecalciferol (Vitamin D3) [Optimal D3] 50,000 unit PO WEEKLY 09/24/17 Problem List - Problems (1) Seizure Code(s): R56.9 - UNSPECIFIED CONVULSIONS (2) Syncope Code(s): R55 - SYNCOPE AND COLLAPSE This patient is new to me today: No Emergency Visit: No Critical Care patient: No - Discharge Referral Referred to [facility] No
[2017-09-28 14:23] VITALS: BP 126/77; PULSE 59; TEMP 97.5
== END 2017-09-28 14:59 | disposition home or self-care (01) ==
LOC: JASU-SURG 12:36 → J4S 17:45 → JASU-SURG 09-28 14:59
PROVIDERS: ATTEND Urology
PROC: 0TF7XZZ Fragmentation in Left Ureter, External Approach (ICD-10-PCS; principal; 2017-09-27 14:00)
DX: N20.1 Calculus of ureter (principal); N20.0 Calculus of kidney
CPT/HCPCS: 36415; 80048; 82962; 83735; 84100; 85025; 94760

== ENCOUNTER 2018-02-18 06:28 | Day surgery (SDC) | payer OTHER ==
[2018-02-15 11:21] VITALS: BMI 25.4
[~2018-02-18 06:28] MED LIST: BUPIVACAINE HCL/PF (5 MG/ML) 30 ML VIAL IJ ONE
[2018-02-18] MEDS ORDERED: ROCURONIUM BROMIDE 50 MG/5 ML VIAL ONE ×2 (07:15→10:06)
[2018-02-18] MEDS ORDERED: fentaNYL CITRATE 250 MCG/5 ML VIAL ONE (07:15)
[2018-02-18] MEDS ORDERED: PROPOFOL 20 ML ONE (07:16)
[2018-02-18] MEDS ORDERED: MIDAZOLAM HCL 2 MG/2 ML SINGLE DOSE VIAL ONE (07:16)
[2018-02-18] MEDS ORDERED: LIDOCAINE HCL/PF 2% SDV 5ML VIAL ONE (07:17)
[2018-02-18] MEDS ORDERED: DEXAMETHASONE SOD PHOSPHATE 4 MG/1 ML VIAL ONE (07:17)
[2018-02-18] MEDS ORDERED: DESFLURANE GAS 240 ML BOTTLE IH ONE (07:20)
--- NOTE | 2018-02-18 07:25 | HP ---
History & Physical Update - History History: No Change - Physical Physical: No Change - Assessment Assessment: No Change - Plan Plan: No Change (Full H&P in the chart from 02/09/18)
[2018-02-18] MEDS ORDERED: ceFAZolin SODIUM 1 GM VIAL IVPB ONE (08:55)
[2018-02-18] MEDS ORDERED: BUPIVACAINE HCL/PF 0.5% (5MG/ML) 10 ML VIAL ONE (09:01)
[2018-02-18] MEDS ORDERED: ePHEDrine SULFATE 50 MG/1 ML AMPULE ONE (09:02)
[2018-02-18] MEDS ORDERED: BUPIVACAINE HCL/PF (5 MG/ML) 30 ML VIAL IJ ONE (09:11)
[2018-02-18] MEDS ORDERED: NEOSTIGMINE METHYLSULFATE 0.5 MG/ML - 10 ML MDV ONE (12:19)
--- NOTE | 2018-02-18 12:36 | OP ---
Operative Note - Note: Operative Date: 02/18/18 Pre-Operative Diagnosis: Bilateral inguinal hernia Operation: Robotic bilateral inguinal hernia repair with mesh Findings: bilateral direct inguinal hernia Implants: Progrip inguinal hernia mesh x 2 Surgeon: Erlin Carver Non Licensed Operator: Gina Staples Anesthesia: General Estimated Blood Loss (mls): 20 Operative Report Dictated: Yes
--- NOTE | 2018-02-18 12:38 | SURG ---
Surgery Cattle Feeder Note Cattle Feeder: Gina Staples PA-C (Suzy) Date of Service: 02/18/18 Diagnosis: bilateral direct inguinal hernia Procedure: Robotic bilateral inguinal hernia repair with mesh I was present for the entirety of the operative procedure. For further detail, please refer to operative report. Visit type - Case Type Case Type: Scheduled - Emergency Emergency Visit: No - New patient This patient is new to me today: Yes Date on this admission: 02/18/18 - Critical Care Critical Care patient: No
[2018-02-18] MEDS ORDERED: ACETAMINOPHEN 1000 MG/100 ML VIAL (NON FORMULARY) IVPB ONE (12:49)
[2018-02-18] MEDS ORDERED: ACETAMINOPHEN INJECTION 100 ML IVPB ONE (13:05)
[2018-02-18] MEDS ORDERED: oxyCODONE HCL 5 MG TABLET PO PRN ×2 (13:27)
[2018-02-18] MEDS ORDERED: ONDANSETRON 4 MG/2 ML VIAL IVPUSH PRN (13:27)
[2018-02-18] MEDS ORDERED: LACTATED RINGERS SOLUTION 1,000 ML IV SCH (13:30)
--- NOTE | 2018-02-18 13:37 | OP ---
DATE OF OPERATION: 02/18/2018 PROCEDURE: Robotic-assisted laparoscopic bilateral inguinal hernia repair with mesh. PREOPERATIVE DIAGNOSIS: Bilateral inguinal hernia with obstruction. POSTOPERATIVE DIAGNOSIS: Bilateral inguinal hernia with obstruction. SURGEON: Erlin Carver MD EYE SPECIALIST: JOCELYN Staples ANESTHESIA: General endotracheal anesthesia. FINDINGS ON PROCEDURE: This is a 47-year-old male who presents with an inguinal hernia associated with pain on exertion. On PE, the patient has partially reducible bilateral inguinal hernias, right bigger than the left side. Patient was advised elective to undergo hernia repair, and consent was obtained after discussion of the risks, benefits, and alternatives of the procedure. DESCRIPTION OF PROCEDURE: Patient was brought to the operating room and placed in supine position. General endotracheal anesthesia was administered. The abdomen was prepped and draped in the usual sterile fashion. Using 0.5% Marcaine, local anesthesia was administered to the proposed incision sites. The peritoneal cavity was entered using the Veress technique via an 8-mm supraumbilical incision slightly at the right of the midline. Pneumoperitoneum was established. An 8-mm port was then inserted into the peritoneal cavity followed by insertion of the 3D laparoscope. The peritoneal cavity was carefully inspected and was noted to be free of inadvertent injury. Patient was then placed in the steep Trendelenburg position. Two large direct inguinal hernias were noted with spontaneous reduction of the intraabdominal contents. Another two 8-mm ports were inserted on each side of the midline 8 cm away from the middle port. The robotic arms were docked and target organ was then set. The fenestrated bipolar forceps was inserted at the left-sided port, and the endowrist elayne were inserted at the right-sided port connected to monopolar cautery. The undersigned then scrubbed out to commence the console part of the procedure. The parietal peritoneum was incised at the level of the anterior superior iliac spine using the endowrist elayne. The preperitoneal pocket was then created using both the fenestrated bipolar and endowrist elayne medially towards the underside of the symphysis pubis and laterally towards the anterior superior iliac spine using the inferior epigastric vessels as a landmark. The dissection was further carried down towards the hernia and the preperitoneal fat , as well as the hernia sac, was carefully dissected from the severely attenuated inguinal floor. After the hernia sac was completely reduced, the peritoneal reflection attached to the spermatic cord was also carefully dissected superiorly to provide adequate space for the mesh placement. After the right side hernia reduction was done, the left inguinal hernia was also dissectd in the same manner. The hernia defects were then closed with continuous V-Loc No. 1 non-absorbable suture. Taking bites at the attenuated transversalis fascia to minimize the seroma formation. The partial closure was started from the pubic tubercle medially taking initial bites of the Coopers ligament followed by bites to the conjoined tendon and iliopubic tract laterally towards the inferior epigastric vessels. After this was done, 2 ProGrip inguinal 10 x 15 cm meshes were deployed to essentially cover the inguinal floor, the femoral canal, and the Hesselbach triangle. After deployment was deemed satisfactory, the peritoneum was then closed with continuous V-Loc 2-0 absorbable sutures to complete the procedure. The robotic arms were then undocked and the pneumoperitoneum was evacuated the ports were removed. The wounds were then closed with subcuticular Biosyn 4-0 sutures reinforced with Dermabond. Patient was successfully extubated and transferred to the postanesthesia care unit in satisfactory condition. Estimated blood loss was about 20 mL. Wound class clean. The patient received 2 g of Ancef prior to the start of the procedure. Graeme [id number] MTDD
[2018-02-18 15:47] VITALS: TEMP 98
[2018-02-18 17:18] VITALS: BP 125/78; PULSE 90
== END 2018-02-18 17:15 | disposition home or self-care (01) ==
LOC: JASU-SURG 06:28
PROVIDERS: ATTEND Surgery
PROC: 8E0W4CZ Robotic Assisted Procedure of Trunk Region, Percutaneous Endoscopic Approach (ICD-10-PCS; 2018-02-18)
PROC: 0YUA4JZ Supplement Bilateral Inguinal Region with Synthetic Substitute, Percutaneous Endoscopic Approach (ICD-10-PCS; principal; 2018-02-18 08:00)
DX: K40.00 Bilateral inguinal hernia, with obstruction, without gangrene, not specified as recurrent (principal)
CPT/HCPCS: 49650; S2900; 82962; 94760; J0131

== ENCOUNTER 2018-06-20 06:01 | Day surgery (SDC) | payer OTHER ==
[2018-06-17 10:53] VITALS: BMI 26.6
[2018-06-20] MEDS ORDERED: PROPOFOL 20 ML ONE (07:16)
[2018-06-20] MEDS ORDERED: MIDAZOLAM HCL 2 MG/2 ML SINGLE DOSE VIAL ONE (07:17)
[2018-06-20] MEDS ORDERED: oxyCODONE HCL 5 MG TABLET PO PRN ×2 (07:45)
[2018-06-20] MEDS ORDERED: ONDANSETRON 4 MG/2 ML VIAL IVPUSH PRN (07:45)
--- NOTE | 2018-06-20 08:50 | OP ---
Operative Note - Note: Operative Date: 06/20/18 Pre-Operative Diagnosis: Left renal stone Operation: Left ESWL Findings: 10 mm lower pole renal stone Post-Operative Diagnosis: Same as Pre-op Surgeon: Yuriy León Anesthesia: Fractional Estimated Blood Loss (mls): 0
[2018-06-20 09:02] VITALS: TEMP 97.4
[2018-06-20 10:29] VITALS: BP 114/74; PULSE 57
--- NOTE | 2018-07-27 09:24 | OP ---
DATE OF OPERATION: 06/20/2018 PREOPERATIVE DIAGNOSIS: Left renal stone. POSTOPERATIVE DIAGNOSIS: Left renal stone. PROCEDURE PERFORMED: Left extracorporeal shock wave lithotripsy. SURGEON: Shine Noel MD ANESTHESIA: Fractional. DESCRIPTION OF PROCEDURE: The patient was brought to the operating room and placed in the supine position on the operating room table. Ultrasonography and fluoroscopy were performed. A 10-mm left lower pole stone was identified. Anesthesia and preoperative antibiotics were then administered. Shock wave lithotripsy was then performed. Excellent fragmentation of the stone under real time ultrasonography and fluoroscopy was noted. The patient tolerated the procedure very well. No complications were noted. DISPOSITION: The patient was sent to the recovery room. SHINE NOEL M.D. [id number]
== END 2018-06-20 10:15 | disposition home or self-care (01) ==
LOC: JASU-SURG 06:01
PROVIDERS: ATTEND Urology
PROC: 0TF4XZZ Fragmentation in Left Kidney Pelvis, External Approach (ICD-10-PCS; principal; 2018-06-20 08:00)
DX: N20.0 Calculus of kidney (principal)
CPT/HCPCS: 82962

== ENCOUNTER 2021-02-24 04:14 | Day surgery (SDC) | payer OTHER ==
[2021-02-24] MEDS ORDERED: PROPOFOL 20 ML ONE ×8 (07:57)
[2021-02-24] MEDS ORDERED: MIDAZOLAM HCL 2 MG/2 ML SINGLE DOSE VIAL ONE ×2 (07:57)
[2021-02-24] MEDS ORDERED: ONDANSETRON 4 MG/2 ML VIAL IVPUSH PRN (08:49)
[2021-02-24] MEDS ORDERED: oxyCODONE HCL 5 MG TABLET PO PRN (08:49)
[2021-02-24] MEDS ORDERED: LACTATED RINGERS SOLUTION 1,000 ML IV SCH (09:00)
[2021-02-24 11:39] VITALS: BP 116/70; PULSE 58; TEMP 98.4
== END 2021-02-24 11:45 | disposition home or self-care (01) ==
LOC: JASU-SURG 04:14
PROVIDERS: ATTEND Urology
PROC: 0TF3XZZ Fragmentation in Right Kidney Pelvis, External Approach (ICD-10-PCS; principal; 2021-02-24 08:00)
DX: N20.0 Calculus of kidney (principal)
CPT/HCPCS: 82962; 94760

== ENCOUNTER 2022-06-12 04:31 | Day surgery (SDC) | payer OTHER ==
[2022-06-11 12:01] VITALS: BMI 26.4
[2022-06-12] MEDS ORDERED: MIDAZOLAM HCL 2 MG/2 ML SINGLE DOSE VIAL ONE (10:41)
[2022-06-12 11:58] VITALS: BP 113/69; PULSE 56; RESP 16; TEMP 97.6
== END 2022-06-12 11:55 | disposition home or self-care (01) ==
LOC: JASU-ENDO 04:31
PROVIDERS: ATTEND Internal Medicine Gastroenterology
PROC: 0DBL8ZX Excision of Transverse Colon, Via Natural or Artificial Opening Endoscopic, Diagnostic (ICD-10-PCS; principal; 2022-06-12 11:00)
DX: Z12.11 Encounter for screening for malignant neoplasm of colon (principal); D12.3 Benign neoplasm of transverse colon; K64.8 Other hemorrhoids
CPT/HCPCS: 82962; 88305-TC

== ENCOUNTER 2024-12-11 06:17 | Day surgery (SDC) | payer OTHER ==
[2024-12-11 07:22] VITALS: BMI 23.4
[2024-12-11] MEDS ORDERED: ONDANSETRON 4 MG/2 ML VIAL ONE (08:32)
[2024-12-11] MEDS ORDERED: MIDAZOLAM HCL 2 MG/2 ML SINGLE DOSE VIAL ONE (08:32)
[2024-12-11] MEDS ORDERED: ONDANSETRON 4 MG/2 ML VIAL IVPUSH PRN (08:58)
[2024-12-11] MEDS ORDERED: LACTATED RINGERS SOLUTION 1,000 ML IV SCH (09:00)
[2024-12-11 10:20] VITALS: RESP 20; TEMP 97.1
[2024-12-11 11:49] VITALS: BP 115/70; PULSE 59
== END 2024-12-11 11:45 | disposition home or self-care (01) ==
LOC: JASU-SURG 06:17
PROVIDERS: ATTEND Urology
PROC: 0TF4XZZ Fragmentation in Left Kidney Pelvis, External Approach (ICD-10-PCS; principal; 2024-12-11 07:30)
DX: N20.0 Calculus of kidney (principal)
CPT/HCPCS: 82962; 94760